=== PATIENT | female | born 1980 | race Caucasian/White ===

== ENCOUNTER 2024-07-27 10:55 | Emergency (ER) | payer OTHER, SELFPAY ==
[2024-07-27] VITALS (12 sets, daily range): BP systolic 108–139; BP diastolic 59–78; PULSE 49–78; RESP 16; TEMP 36.4; O2SAT 100; BMI 28.1
[2024-07-27 11:40] LABS: Add Manual Diff / Slide Review NO; Basophils Absolute Auto 0 /uL (0-100); Basophils Percent Auto 0.6 % (0-2); Eosinophils Absolute Auto 0 /uL (0-450); Eosinophils Percent Auto 0.3 % (2-4); Hematocrit 46.3 % (36-46); Hemoglobin 15.4 g/dL (12.0-16.0); Lymphocytes Absolute Auto 1400 /uL (1100-4500); Lymphocytes Percent Auto 25.3 % (25-40); Mean Corpuscular HGB Conc 33.2 % (30-36); Mean Corpuscular Hemoglobin 30.7 PG (26-34); Mean Corpuscular Volume 92.4 fL (80-100); Monocytes Absolute Auto 700 /uL (0-900); Monocytes Percent Auto 12.3 % (3-14); Neutrophils Absolute Auto 3400 /uL (1500-7000); Neutrophils Percent Auto 61.5 % (50-75); Platelet Count 186 X10^3/uL (150-400); Red Blood Cell Count 5.01 X10^6/uL (4.0-5.2); Red Cell Distribution Width 13.7 % (11.6-14.8); White Blood Cell Count 5.5 X10^3/uL (4.5-11.0)
[2024-07-27 11:49] LABS: Alanine Aminotransferase 63 IU/L (<35); Albumin 4.4 g/dL (3.5-5.0); Albumin Globulin Ratio 1.6 (1.0-2.8); Alkaline Phosphatase 86 U/L (38-126); Aspartate Aminotransferase 65 IU/L (14-36); BUN Creatinine Ratio 8.8 (6-22); Bilirubin Total 0.4 mg/dL (0.2-1.3); Blood Urea Nitrogen 5 mg/dL (7-17); Calcium 9.3 mg/dL (8.4-10.2); Carbon Dioxide 22 mmol/L (22-32); Chloride 107 mmol/L (98-107); Estimated Glomerular Filt Rate > 60 mL/min (>60); Globulin 2.8 g/dL (1.7-4.1); Glucose 101 mg/dL (70-100); HEMOLYSIS < 15 (0-50); Lipase 104 U/L (23-300); Potassium 3.7 mmol/L (3.4-5.1); Sodium 137 mmol/L (137-145); Total Protein 7.2 g/dL (6.3-8.2)
[2024-07-27 12:43] LABS: Bacteria Urine Occasional (0-1); Culture Indicated Urine Cult Not Indicated; RBC Urine 0-1/HPF (0-5/HPF); Squamous Epithelial Cell Urine 0-1 /HPF (0-5/HPF); Urine Volume 10mL (spun); WBC Urine 0-1/HPF (0-5/HPF)
--- NOTE | 2024-07-27 18:23 | ED.GENADULT ---
HPI - General Adult General Chief complaint: Abdominal Pain Stated complaint: stomach pain Time Seen by Provider: 07/27/24 18:00 Source: patient Mode of arrival: Ambulatory History of Present Illness HPI narrative: Patient is a 44-year-old female. Here for evaluation of 4-5 days of intermittent epigastric abdominal discomfort. States that she did have a bowel movement yesterday. No urinary symptoms. No vomiting. No fevers. She states that she has had workup recently for her gallbladder. She also has had a HIDA scan. She stated that the general surgeon that was consulting as she be followed up by gastroenterology and there was no current recommendation for surgery. She has been traveling recently. No fevers. Related Data Previous Rx's Medication Instructions Recorded ondansetron 4 mg disintegrating 4 mg PO Q6H PRN nausea and 07/27/24 tablet vomiting #10 tabs Allergies Allergy/AdvReac Type Severity Reaction Status Date / Time No Known Drug Allergies Allergy Verified 07/27/24 11:19 Review of Systems Review of Systems Narrative: See HPI Patient History Social History Smoking Status: Never smoker Smoking Status: Never smoker alcohol intake frequency: holidays/special occasions only Substance Use Type: does not use Exam Initial Vital Signs Initial Vital Signs: Vital Signs Temperature 97.5 F L 07/27/24 11:19 Pulse Rate 78 07/27/24 11:19 Respiratory Rate 16 07/27/24 11:19 Blood Pressure 126/69 07/27/24 11:19 Pulse Oximetry 100 07/27/24 11:19 Oxygen Delivery Method Room Air 07/27/24 11:19 Const General: cooperative, comfortable and No ill appearing [facility] Head: normal to inspection and atraumatic Resp Effort & Inspection: normal respiratory effort Auscultation: clear to auscultation bilaterally Cardio Rate: regular rate Rhythm: regular rhythm GI Inspection: non-distended Palpation: No firm, No guarding and tender Skin General: no rashes or lesions noted Course Orders Ordered: ED Orders 07/27/24 18:23 US abdomen limited Stat Discontinued Medications Ondansetron HCl (Ondansetron 4 Mg/2 Ml Inj) 4 mg IV NOW PRN PRN Reason: Nausea And Vomiting Ondansetron HCl (Ondansetron 4 Mg Odt) 4 mg PO NOW PRN PRN Reason: Nausea And Vomiting Ondansetron HCl (Ondansetron 4 Mg Odt Prepack) 1 bottle MISC DIRECTED ONE Stop: 07/27/24 19:56 Last Admin: 07/27/24 20:13 Dose: 1 bottle Documented By: ML Vital Signs Vital signs: Vital Signs - 8 hr 07/27/24 18:30 07/27/24 19:00 07/27/24 19:30 Pulse Rate 49 L 51 L 52 L Blood Pressure Pulse Oximetry 100 100 100 07/27/24 20:00 07/27/24 20:15 07/27/24 20:15 Pulse Rate 50 L 54 L Blood Pressure 114/59 L Pulse Oximetry 100 Medical Decision Making Lab Data Lab results reviewed: Yes I reviewed the patient's lab results. 07/27/24 11:30 07/27/24 11:30 Labs: Lab Results 07/27/24 07/27/24 Range/Units 11:30 12:21 WBC 5.5 (4.5-11.0) X10^3/uL RBC 5.01 (4.0-5.2) X10^6/uL Hgb 15.4 (12.0-16.0) g/dL Hct 46.3 H (36-46) % MCV 92.4 (80-100) fL MCH 30.7 (26-34) PG MCHC 33.2 (30-36) % RDW 13.7 (11.6-14.8) % Plt Count 186 (150-400) X10^3/uL Neut % (Auto) 61.5 (50-75) % Lymph % (Auto) 25.3 (25-40) % [place] % (Auto) 12.3 (3-14) % Eos % (Auto) 0.3 L (2-4) % Baso % (Auto) 0.6 (0-2) % Neut # (Auto) 3400 (5258-5414) /uL Lymph # (Auto) 1400 (4528-0736) /uL [place] # (Auto) 700 (0-900) /uL Eos # (Auto) 0 (0-450) /uL Baso # (Auto) 0 (0-100) /uL Sodium 137 (137-145) mmol/L Potassium 3.7 (3.4-5.1) mmol/L Chloride 107 (98-107) mmol/L Carbon Dioxide 22 (22-32) mmol/L BUN 5 L (7-17) mg/dL Creatinine 0.57 (0.52-1.04) mg/dL Estimated GFR > 60 (>60) mL/min BUN/Creatinine Ratio 8.8 (6-22) Glucose 101 H (70-100) mg/dL Calcium 9.3 (8.4-10.2) mg/dL Total Bilirubin 0.4 (0.2-1.3) mg/dL AST 65 H (14-36) IU/L ALT 63 H (<35) IU/L Alkaline Phosphatase 86 (38-126) U/L Total Protein 7.2 (6.3-8.2) g/dL Albumin 4.4 (3.5-5.0) g/dL Globulin 2.8 (1.7-4.1) g/dL Albumin/Globulin Ratio 1.6 (1.0-2.8) Lipase 104 (23-300) U/L Urine RBC 0-1/hpf (0-5/HPF) Urine WBC 0-1/hpf (0-5/HPF) Ur Squamous Epith Cells 0-1 /hpf (0-5/HPF) Urine Bacteria Occasional (0-1) (None) Ur Culture Indicated? Cult not indicated Vol Urine Centrifuged 10ml (spun) Point of Care Testing Test Results Negative Urine Dip Bedside Urine Glucose Negative Bedside Urine Bilirubin - Negative Bedside Urine Ketone +++ 80 Urine Specific [place] 1.015 Bedside Urine Occult Blood +/- Bedside Urine pH 6.0 Bedside Urine Protein - Negative Bedside Urine Urobilinogen - Negative Bedside Urine Nitrite - Negative Bedside Urine Leukocytes - Negative Esterase Point of care testing: Point of Care Testing Test Results Negative Urine Dip Bedside Urine Glucose Negative Bedside Urine Bilirubin - Negative Bedside Urine Ketone +++ 80 Urine Specific [place] 1.015 Bedside Urine Occult Blood +/- Bedside Urine pH 6.0 Bedside Urine Protein - Negative Bedside Urine Urobilinogen - Negative Bedside Urine Nitrite - Negative Bedside Urine Leukocytes - Negative Esterase Imaging Data US - abdomen: Radiologist's Impression: PROCEDURE: US ABDOMEN LIMITED INDICATIONS: RUQ pain eval for GB pathology TECHNIQUE: Real-time focused scanning was performed of the abdomen, with image documentation. COMPARISON: None. FINDINGS: Gallbladder is partially distended with normal wall thickness. No stones, pericholecystic fluid, or sonographic [place] sign. Homogeneously hyperechoic lobulated mass in the posterior right hepatic lobe measuring 4.7 x 3.2 x 3.0 cm. A smaller adjacent hyperechoic mass measures 1.1 cm. There is mild intrahepatic biliary dilatation and slight prominence of the extrahepatic common duct measuring up to 6.7 mm. No fluid in the right upper quadrant. The visible portion of the pancreas and right kidney are normal. IMPRESSION: Normal gallbladder. Mild biliary prominence. Correlate with LFTs. Hyperechoic hepatic masses most suggestive of cavernous hemangiomas. Confirmation with liver MRI as an outpatient using Eovist contrast is recommende [facility] Narrative Medical decision making narrative: Right upper quadrant ultrasound has a normal gallbladder. LFTs and lipase are unremarkable. I have low suspicion for UTI/pyelonephritis. Patient was currently on a proton pump inhibitor. She states that Tylenol and ibuprofen do seem to help her symptoms somewhat. I do feel that we can hold on further radiologic studies such as a CT scan based on her exam today and that she does have improving of symptoms. I did recommend that she follow-up with GI as recommended by the general surgeon who has been following her case. Will send home with nausea medication. She was given return precautions. She expressed understanding and agreement with plan. Discharge Plan Departure Patient Disposition: Home Clinical Impression: Abdominal pain Instructions: DI for Abdominal Pain-Adult Activity Restrictions/Additional Instructions: I do recommend that you follow-up with your primary care doctor and following up with the GI consultation. Take the medication as directed. Return to the emergency department for new symptoms. Prescriptions: New ondansetron 4 mg tablet,disintegrating 4 mg PO Q6H PRN (Reason: nausea and vomiting) Qty: 10 0RF Stand Alone Forms: Patient Portal/API/Survey
[2024-07-27] MEDS: ONDANSETRON 4 MG ODT PREPACK 1 BOTTLE MISC (20:13)
== END 2024-07-27 20:16 | disposition home or self-care (01) ==
PROVIDERS: Emergency Medicine; Emergency Provider Emergency Medicine
DX: R10.13 Epigastric pain (principal)
CPT/HCPCS: 36415; 76705; 80053; 81003; 81015; 81025; 83690; 85025; 99283; 99284